=== PATIENT | male | born 1995 | race Hispanic/Latino ===

== ENCOUNTER 2021-10-18 19:45 | Emergency (ER) | payer OTHER ==
[~2021-10-18] VITALS: Ht 182.9 cm; Wt 112.1 kg
[2021-10-18] MEDS ORDERED: KETOROLAC 30 MG/ML 1ML VIAL IV ONE (22:45)
[2021-10-18] MEDS ORDERED: NS 1,000 ML IV ONE (22:45)
[2021-10-18] MEDS ORDERED: ISOVUE-370 76% 100ML VIAL As Ordered ONE (23:01)
[2021-10-18 23:07] LABS: BASO % 0.5 % (0.0-1.0); EOS # 0.2 10^3/uL (0.0-0.5); EOS % 2.3 % (0.0-3.0); HEMATOCRIT 44.1 % (42.0-52.0); HEMOGLOBIN 15.6 g/dl (13.5-17.5); LYMPH # 2.6 10^3/uL (1.5-5.0); LYMPH % 31.9 % (24.0-44.0); MEAN CORPUSCULAR HEMOGLOBIN 30.9 pg (27.0-33.0); MEAN CORPUSCULAR HGB CONC 35.4 g/dl (32.0-36.5); MEAN CORPUSCULAR VOLUME 87.3 fl (80.0-96.0); MONO # 0.7 10^3/uL (0.0-0.8); MONO % 8.3 % (2.0-8.0); NEUTROPHILS # 4.6 10^3/uL (1.5-8.5); NEUTROPHILS % 56.8 % (36.0-66.0); PLATELET COUNT, AUTOMATED 259 10^3/uL (150-450); RED BLOOD COUNT 5.05 10^6/uL (4.30-6.10); WHITE BLOOD COUNT 8.2 10^3/uL (4.0-10.0)
[2021-10-18 23:24] LABS: ERYTHROCYTE SEDIMENTATION RATE 5 mm/hr (0-15)
[2021-10-18 23:33] LABS: BLOOD UREA NITROGEN 17 MG/DL (7-18); CALCIUM LEVEL 9.2 MG/DL (8.5-10.1); CARBON DIOXIDE LEVEL 28 MEQ/L (21-32); CHLORIDE LEVEL 107 MEQ/L (98-107); CREATININE FOR GFR 1.07 MG/DL (0.70-1.30); GLOMERULAR FILTRATION RATE > 60.0 (>60); GLUCOSE, FASTING 90 MG/DL (70-100); POTASSIUM SERUM 4.4 MEQ/L (3.5-5.1); SODIUM LEVEL 137 MEQ/L (136-145)
[2021-10-19] MEDS ORDERED: BACTRIM 160MG/800MG DS TAB PO ONE (00:40)
[2021-10-19] MEDS ORDERED: BACT800T5 PO (00:40)
[2021-10-19 00:53] VITALS: BP 136/81
== END 2021-10-19 00:55 | disposition home or self-care (01) ==
LOC: M ED 19:45
DX: H60.01 Abscess of right external ear (principal); M27.2 Inflammatory conditions of jaws
CPT/HCPCS: 70487; 80047; 80048; 85025; 85652; 86140; 96361; 96374; 99284; J1885; Q9967

== ENCOUNTER → 2021-11-11 | Outpatient (REF) | payer OTHER ==
[~2021-11-11] MED LIST: BACT800T5 PO
== END ==
LOC: M LAB REF 17:21
PROVIDERS: ATTEND Otolaryngology
DX: L72.0 Epidermal cyst (principal)

== ENCOUNTER → 2022-02-20 | Outpatient (CLI) | payer OTHER | LOC: M PLAIMG 06:47 | PROVIDERS: ATTEND Physician Assistant | DX: M54.50 Low back pain, unspecified (principal) ==

== ENCOUNTER 2022-05-29 12:58 | Emergency (ER) | payer OTHER ==
[~2022-05-29] VITALS: Ht 175.3 cm; Wt 248.0 kg
[2022-05-29] MEDS ORDERED: FLUORESCEIN OPHTH 1 MG STRIP OS ONE (16:45)
[2022-05-29] MEDS ORDERED: PROPARACAINE 0.5% OPHTH SOL 15ML OS ONE (16:45)
[2022-05-29] MEDS ORDERED: ERYTOIN8 OS ×2 (17:44→18:31)
[2022-05-29] MEDS ORDERED: KETO10TAB PO ×2 (17:44→18:31)
[2022-05-29] MEDS ORDERED: KETOROLAC 30 MG/ML 1ML VIAL IV ONE (17:45)
[2022-05-29] MEDS ORDERED: ERYTHROMYCIN OPHTH OINT OS ONE (17:45)
[2022-05-29] MEDS ORDERED: ACETAMINOPHEN 325 MG TAB PO ONE (17:45)
[2022-05-29 17:49] VITALS: BP 125/65
== END 2022-05-29 18:30 | disposition home or self-care (01) ==
LOC: EDBD 12:58 → M ED 12:58
DX: S05.02XA Injury of conjunctiva and corneal abrasion without foreign body, left eye, initial encounter (principal); R51.9 Headache, unspecified; W21.00XA Struck by hit or thrown ball, unspecified type, initial encounter; Z79.899 Other long term (current) drug therapy
CPT/HCPCS: 70480; 96374; 99284; J1885

== ENCOUNTER → 2023-02-03 | Outpatient (REF) | payer OTHER ==
[~2023-02-03] MED LIST changes: +ERYTOIN8 OS; +KETO10TAB PO
[2023-02-03 17:04] LABS: APPEARANCE, URINE CLEAR (CLEAR); BACTERIA, URINE AUTO NEGATIVE (NEGATIVE); BILIRUBIN, URINE AUTO NEGATIVE (NEGATIVE); BLOOD, URINE BLOOD NEGATIVE (NEGATIVE); COLOR, URINE YELLOW (YELLOW); GLUCOSE, URINE (UA) AUTO NEGATIVE (NEGATIVE); KETONE, URINE AUTO NEGATIVE (NEGATIVE); LEUKOCYTE ESTERASE, URINE AUTO NEGATIVE (NEGATIVE); NITRITE, URINE AUTO NEGATIVE (NEGATIVE); PROTEIN, URINE AUTO NEGATIVE (NEGATIVE); RBC, URINE AUTO 0 /HPF (0-3); SQUAMOUS EPITHELIAL CELL UR AU 0 /HPF (0-6); UROBILINOGEN, URINE AUTO 0.2 mg/dL (0.0-2.0); WBC, URINE AUTO 0 /HPF (0-3)
[2023-02-03 18:49] LABS: GC DNA AMPLIFICATION NEGATIVE (NEGATIVE)
== END ==
LOC: M LAB REF 16:14
PROVIDERS: ATTEND Physician Assistant Medical
DX: Z20.2 Contact with and (suspected) exposure to infections with a predominantly sexual mode of transmission (principal); N39.0 Urinary tract infection, site not specified

== ENCOUNTER 2023-04-21 09:38 | Emergency (ER) | payer OTHER ==
[~2023-04-21] VITALS: Ht 175.3 cm; Wt 115.0 kg
[2023-04-21] MEDS ORDERED: KETOROLAC 30 MG/ML 1ML VIAL IV ONE (09:50)
[2023-04-21 10:14] LABS: BASO % 0.7 % (0.0-1.0); EOS # 0.2 10^3/uL (0.0-0.5); EOS % 3.3 % (0.0-3.0); HEMATOCRIT 42.3 % (42.0-52.0); HEMOGLOBIN 14.7 g/dl (13.5-17.5); LYMPH # 1.8 10^3/uL (1.5-5.0); LYMPH % 31.3 % (24.0-44.0); MEAN CORPUSCULAR HEMOGLOBIN 30.3 pg (27.0-33.0); MEAN CORPUSCULAR HGB CONC 34.8 g/dl (32.0-36.5); MEAN CORPUSCULAR VOLUME 87.2 fl (80.0-96.0); MONO # 0.5 10^3/uL (0.0-0.8); MONO % 9.1 % (2.0-8.0); NEUTROPHILS # 3.2 10^3/uL (1.5-8.5); NEUTROPHILS % 55.4 % (36.0-66.0); PLATELET COUNT, AUTOMATED 223 10^3/uL (150-450); RED BLOOD COUNT 4.85 10^6/uL (4.30-6.10); WHITE BLOOD COUNT 5.7 10^3/uL (4.0-10.0)
[2023-04-21 10:41] LABS: LIPASE 26 U/L (12-53)
[2023-04-21 10:43] LABS: ALBUMIN 3.7 G/DL (3.2-5.2); ALKALINE PHOSPHATASE 45 U/L (46-116); ALT/SGPT 27 U/L (7.0-40); AST/SGOT 26 U/L (<34); BILIRUBIN,DIRECT 0.2 MG/DL (<0.4); BILIRUBIN,TOTAL 0.7 MG/DL (0.3-1.2); BLOOD UREA NITROGEN 20 MG/DL (9-23); CALCIUM LEVEL 8.9 MG/DL (8.5-10.1); CARBON DIOXIDE LEVEL 26 MMOL/L (20-31); CHLORIDE LEVEL 106 MMOL/L (98-107); CK-MB VALUE MASS 1.1 NG/ML (<3.6); GLOMERULAR FILTRATION RATE > 60.0 (>60); GLUCOSE, FASTING 90 MG/DL (60-100); POTASSIUM SERUM 4.1 MMOL/L (3.5-5.1); SODIUM LEVEL 138 MMOL/L (136-145)
[2023-04-21 10:45] LABS: CPK CREATINE PHOSPHOKINASE 573 U/L (46-171); MB/CK RELATIVE INDEX 0.19 (< OR =4); THYROID STIMULATING HORMONE 1.157 uIU/ML (0.55-4.78)
[2023-04-21] MEDS ORDERED: ISOVUE-370 76% 100ML VIAL As Ordered ONE (11:07)
[2023-04-21 11:52] VITALS: TEMP 96; O2SAT 99
[2023-04-21 12:00] VITALS: BP 109/58
== END 2023-04-21 12:14 | disposition home or self-care (01) ==
LOC: M ED 09:38 → EDBD 09:38 → M ED 12:14
DX: R07.9 Chest pain, unspecified (principal); R00.1 Bradycardia, unspecified
CPT/HCPCS: 71045; 71275; 80048; 80076; 82550; 82553; 83690; 84443; 84484; 85025; 93005; 96374; 99284; J1885; Q9967

== ENCOUNTER → 2023-08-26 | Outpatient (CLI) | payer OTHER | LOC: M CARPUL 13:24 | PROVIDERS: ATTEND Nurse Practitioner Adult Health | DX: R06.02 Shortness of breath (principal) ==

== ENCOUNTER → 2023-08-31 | Outpatient (CLI) | payer OTHER ==
[~2023-08-31] MED LIST changes: +METHACHOLINE KIT (6 VIAL.NEB PREMIX) INH ONE
== END ==
LOC: M CARPUL 13:34
PROVIDERS: ATTEND Nurse Practitioner Adult Health
DX: R06.02 Shortness of breath (principal)
CPT/HCPCS: 94070; J7674